=== PATIENT | female | born 1955 | race African-American/Black ===

== ENCOUNTER 2022-09-29 04:04 | Inpatient (IN) | payer OTHER, BC ==
[2022-09-22 09:01] VITALS: BMI 41.5
[~2022-09-29 04:04] MED LIST: BUPIVACAINE HCL/PF 0.5% (5MG/ML) 10 ML VIAL IJ ONE; LIDOCAINE 1%/EPI 1:100000 (20 ML MULTI DOSE VIAL) IJ ONE
[2022-09-29] MEDS ORDERED: PROPOFOL 20 ML ONE ×2 (15:33→16:48)
[2022-09-29] MEDS ORDERED: SUCCINYLCHOLINE CHLORIDE 200 MG/10 ML SYRINGE ONE (15:33)
[2022-09-29] MEDS ORDERED: MIDAZOLAM HCL 2 MG/2 ML SINGLE DOSE VIAL ONE (15:33)
[2022-09-29] MEDS ORDERED: VANCOMYCIN 1,000 MG VIAL (RESTRICTED TO ID ONLY) ONE (15:39)
[2022-09-29] MEDS ORDERED: GENTAMICIN SO4 80 MG/2 ML VIAL ONE (15:39)
[2022-09-29] MEDS ORDERED: GENTAMICIN 80MG PREMIX BAG IVPB ONE ×3 (16:09→16:54)
[2022-09-29] MEDS ORDERED: BETAMET ACET/BETAMET NA PH 30 MG/5 ML VIAL IM ONE ×2 (16:10)
[2022-09-29] MEDS ORDERED: LIDOCAINE 1%/EPI 1:100000 (20 ML MULTI DOSE VIAL) IJ ONE (16:55)
[2022-09-29] MEDS ORDERED: BUPIVACAINE HCL/PF 0.5% (5MG/ML) 10 ML VIAL IJ ONE (16:55)
[2022-09-29] MEDS ORDERED: ONDANSETRON 4 MG/2 ML VIAL IVPUSH PRN (19:29)
[2022-09-29] MEDS: LACTATED RINGERS SOLUTION 1,000 ML IV SCH ×2 (20:21→22:32)
[2022-09-29] MEDS: ATORVASTATIN CA 10 MG TABLET (FP) PO SCH (22:29)
[2022-09-29] MEDS: oxyCODONE HCL 5 MG TABLET PO PRN (22:29)
[2022-09-29] MEDS: POTASSIUM CHLORIDE TABS 10 MEQ TABLET.ER (FP) PO SCH (22:32)
[2022-09-29] MEDS: CELECOXIB 200 MG CAPSULE PO SCH (23:08)
[2022-09-30] MEDS: metFORMIN HCL 500 MG TABLET (FP) PO SCH ×2 (06:06→16:55)
[2022-09-30] MEDS ORDERED: amLODIPine BESYLATE 5 MG TABLET (FP) PO SCH (10:00)
[2022-09-30] MEDS: GABAPENTIN 300 MG CAPSULE PO SCH (10:11)
[2022-09-30] MEDS: FUROSEMIDE 20 MG TABLET (FP) PO SCH (10:11)
[2022-09-30] MEDS: LISINOPRIL 20 MG TABLET PO SCH (10:11)
[2022-09-30] MEDS: POTASSIUM CHLORIDE TABS 10 MEQ TABLET.ER (FP) PO SCH ×2 (10:11→21:54)
[2022-09-30] MEDS: CELECOXIB 200 MG CAPSULE PO SCH ×2 (10:12→21:54)
[2022-09-30] MEDS: HYDROCHLOROTHIAZIDE 25 MG TABLET (FP) PO SCH (10:12)
[2022-09-30] MEDS: oxyCODONE HCL 5 MG TABLET PO PRN ×2 (10:18→21:57)
[2022-09-30] MEDS: ATORVASTATIN CA 10 MG TABLET (FP) PO SCH (21:54)
[2022-09-30] MEDS: LACTATED RINGERS SOLUTION 1,000 ML IV SCH ×2 (21:55)
[2022-10-01] MEDS: metFORMIN HCL 500 MG TABLET (FP) PO SCH ×2 (07:10→17:13)
[2022-10-01] MEDS: LACTATED RINGERS SOLUTION 1,000 ML IV SCH ×3 (07:15→21:41)
[2022-10-01] MEDS: CELECOXIB 200 MG CAPSULE PO SCH ×2 (10:39→21:40)
[2022-10-01] MEDS: HYDROCHLOROTHIAZIDE 25 MG TABLET (FP) PO SCH (10:39)
[2022-10-01] MEDS: POTASSIUM CHLORIDE TABS 10 MEQ TABLET.ER (FP) PO SCH ×2 (10:40→21:40)
[2022-10-01] MEDS: GABAPENTIN 300 MG CAPSULE PO SCH (10:40)
[2022-10-01] MEDS: FUROSEMIDE 20 MG TABLET (FP) PO SCH (10:40)
[2022-10-01] MEDS: LISINOPRIL 20 MG TABLET PO SCH (10:41)
[2022-10-01] MEDS: amLODIPine BESYLATE 2.5 MG TABLET (FP) PO SCH (10:41)
[2022-10-01] MEDS: oxyCODONE HCL 5 MG TABLET PO PRN ×2 (10:50→21:40)
[2022-10-01] MEDS: ATORVASTATIN CA 10 MG TABLET (FP) PO SCH (21:40)
[2022-10-02] MEDS: metFORMIN HCL 500 MG TABLET (FP) PO SCH ×2 (07:02→16:59)
[2022-10-02] MEDS: oxyCODONE HCL 5 MG TABLET PO PRN ×3 (07:02→22:28)
[2022-10-02] MEDS: CELECOXIB 200 MG CAPSULE PO SCH ×2 (09:58→22:27)
[2022-10-02] MEDS: FUROSEMIDE 20 MG TABLET (FP) PO SCH (09:58)
[2022-10-02] MEDS: amLODIPine BESYLATE 2.5 MG TABLET (FP) PO SCH (09:58)
[2022-10-02] MEDS: HYDROCHLOROTHIAZIDE 25 MG TABLET (FP) PO SCH (09:58)
[2022-10-02] MEDS: GABAPENTIN 300 MG CAPSULE PO SCH (09:58)
[2022-10-02] MEDS: POTASSIUM CHLORIDE TABS 10 MEQ TABLET.ER (FP) PO SCH ×2 (09:58→22:27)
[2022-10-02] MEDS: LISINOPRIL 20 MG TABLET PO SCH (09:58)
[2022-10-02] MEDS: BACITRACIN ZINC 15 GM TUBE TOPICAL OINTMENT TP SCH (15:46)
[2022-10-02] MEDS ORDERED: ENOXAPARIN NA (PORCINE) 40 MG/0.4 ML DISP.SYRIN SQ SCH (17:15)
[2022-10-02] MEDS: HEPARIN NA (PORCINE) 5,000 UNITS/ML 1ML VIAL SQ SCH ×2 (18:11→22:28)
[2022-10-02] MEDS: ATORVASTATIN CA 10 MG TABLET (FP) PO SCH (22:27)
[2022-10-02] MEDS: INSULIN SLIDING SCALE (NOVOLOG) 1 VIAL SQ SCH (22:38)
[2022-10-03] MEDS: oxyCODONE HCL 5 MG TABLET PO PRN ×2 (06:59→22:29)
[2022-10-03] MEDS: metFORMIN HCL 500 MG TABLET (FP) PO SCH ×2 (07:00→17:16)
[2022-10-03] MEDS: INSULIN SLIDING SCALE (NOVOLOG) 1 VIAL SQ SCH ×4 (07:03→22:35)
[2022-10-03] MEDS: HEPARIN NA (PORCINE) 5,000 UNITS/ML 1ML VIAL SQ SCH ×2 (09:11→22:28)
[2022-10-03] MEDS: amLODIPine BESYLATE 2.5 MG TABLET (FP) PO SCH (09:11)
[2022-10-03] MEDS: FUROSEMIDE 20 MG TABLET (FP) PO SCH (09:11)
[2022-10-03] MEDS: CELECOXIB 200 MG CAPSULE PO SCH ×2 (09:11→22:28)
[2022-10-03] MEDS: HYDROCHLOROTHIAZIDE 25 MG TABLET (FP) PO SCH (09:11)
[2022-10-03] MEDS: POTASSIUM CHLORIDE TABS 10 MEQ TABLET.ER (FP) PO SCH ×2 (09:12→22:28)
[2022-10-03] MEDS: GABAPENTIN 300 MG CAPSULE PO SCH (09:12)
[2022-10-03] MEDS: LISINOPRIL 20 MG TABLET PO SCH (09:12)
[2022-10-03] MEDS: BACITRACIN ZINC 15 GM TUBE TOPICAL OINTMENT TP SCH (09:12)
[2022-10-03 09:47] LABS: BASO % 0.4 % (0-2.0); EOS % 3.2 % (0-4.5); HEMATOCRIT 33.6 % (32.4-45.2); HEMOGLOBIN 11.5 GM/dL (10.7-15.3); LYMPH % 15.2 % (8-40); MCH 31.2 pg (25.7-33.7); MCHC 34.3 g/dl (32.0-36.0); MEAN CELL VOLUME 90.8 fl (80-96); MEAN PLT VOLUME 6.9 fl (7.5-11.1); MONO % 12.7 % (3.8-10.2); NEUT % 68.5 % (42.8-82.8); PLATELET COUNT 307 10^3/uL (134-434); RDW 14.5 % (11.6-15.6); WHITE BLOOD COUNT 7.2 K/mm3 (4.0-10.0)
[2022-10-03 10:09] LABS: POTASSIUM 3.6 mmol/L (3.5-5.1)
[2022-10-03 10:15] LABS: CALCIUM 8.7 mg/dL (8.5-10.1)
[2022-10-03 10:16] LABS: ALBUMIN 2.5 g/dl (3.4-5.0); BLOOD UREA NITROGEN 12.7 mg/dL (7-18)
[2022-10-03 10:20] LABS: TOT PROT 6.3 g/dl (6.4-8.2)
[2022-10-03 10:21] LABS: BILIRUBIN,TOTAL 0.6 mg/dL (0.2-1)
[2022-10-03] MEDS ORDERED: INSULIN (NOVOLOG) ASPART 100 UNITS/ML 10ML VIAL ONE ×3 (11:26→21:18)
[2022-10-03] MEDS: ATORVASTATIN CA 10 MG TABLET (FP) PO SCH (22:28)
[2022-10-04] MEDS ORDERED: INSULIN (LEVEMIR) 100 UNITS/ML UNITS SQ ONE (07:06)
[2022-10-04] MEDS: INSULIN SLIDING SCALE (NOVOLOG) 1 VIAL SQ SCH ×4 (07:12→21:53)
[2022-10-04] MEDS: metFORMIN HCL 500 MG TABLET (FP) PO SCH ×2 (07:14→16:44)
[2022-10-04] MEDS: BACITRACIN ZINC 15 GM TUBE TOPICAL OINTMENT TP SCH (09:02)
[2022-10-04] MEDS: CELECOXIB 200 MG CAPSULE PO SCH ×2 (09:02→21:53)
[2022-10-04] MEDS: LISINOPRIL 20 MG TABLET PO SCH (09:03)
[2022-10-04] MEDS: HYDROCHLOROTHIAZIDE 25 MG TABLET (FP) PO SCH (09:03)
[2022-10-04] MEDS: POTASSIUM CHLORIDE TABS 10 MEQ TABLET.ER (FP) PO SCH ×2 (09:03→21:53)
[2022-10-04] MEDS: FUROSEMIDE 20 MG TABLET (FP) PO SCH (09:03)
[2022-10-04] MEDS: HEPARIN NA (PORCINE) 5,000 UNITS/ML 1ML VIAL SQ SCH ×2 (09:03→21:52)
[2022-10-04] MEDS: GABAPENTIN 300 MG CAPSULE PO SCH (09:03)
[2022-10-04] MEDS: amLODIPine BESYLATE 2.5 MG TABLET (FP) PO SCH (09:04)
[2022-10-04] MEDS ORDERED: INSULIN (NOVOLOG) ASPART 100 UNITS/ML 10ML VIAL ONE (11:21)
[2022-10-04] MEDS: ATORVASTATIN CA 10 MG TABLET (FP) PO SCH (21:52)
[2022-10-04] MEDS: oxyCODONE HCL 5 MG TABLET PO PRN (21:59)
[2022-10-05] MEDS: metFORMIN HCL 500 MG TABLET (FP) PO SCH ×2 (06:15→17:43)
[2022-10-05] MEDS: oxyCODONE HCL 5 MG TABLET PO PRN ×2 (06:20→22:45)
[2022-10-05] MEDS: INSULIN SLIDING SCALE (NOVOLOG) 1 VIAL SQ SCH ×4 (06:22→22:55)
[2022-10-05 09:02] LABS: BASO % 0.6 % (0-2.0); EOS % 3.1 % (0-4.5); HEMATOCRIT 36.1 % (32.4-45.2); LYMPH % 24.6 % (8-40); MCH 31.1 pg (25.7-33.7); MCHC 33.3 g/dl (32.0-36.0); MEAN CELL VOLUME 93.5 fl (80-96); MEAN PLT VOLUME 7.4 fl (7.5-11.1); MONO % 12.4 % (3.8-10.2); NEUT % 59.3 % (42.8-82.8); PLATELET COUNT 364 10^3/uL (134-434); RBC 3.86 M/mm3 (3.60-5.2); RDW 14.5 % (11.6-15.6); WHITE BLOOD COUNT 6.2 K/mm3 (4.0-10.0)
[2022-10-05 09:14] LABS: INR 1.03 (0.83-1.09); PROTHROMBIN TIME (PATIENT) 11.9 SEC (9.7-13.0)
[2022-10-05 09:15] LABS: ACTIVATED PTT 29.5 SECONDS (25.2-36.5)
[2022-10-05 09:21] LABS: CALCIUM 9.2 mg/dL (8.5-10.1)
[2022-10-05 09:22] LABS: ALBUMIN 2.8 g/dl (3.4-5.0); BLOOD UREA NITROGEN 18.8 mg/dL (7-18)
[2022-10-05 09:25] LABS: CREATININE 1.1 mg/dL (0.55-1.3); PHOSPHOROUS 3.1 mg/dL (2.5-4.9)
[2022-10-05 09:26] LABS: TOT PROT 6.8 g/dl (6.4-8.2)
[2022-10-05 09:27] LABS: BILIRUBIN,TOTAL 0.5 mg/dL (0.2-1)
[2022-10-05] MEDS: BACITRACIN ZINC 15 GM TUBE TOPICAL OINTMENT TP SCH ×4 (10:36→22:48)
[2022-10-05] MEDS: POTASSIUM CHLORIDE TABS 10 MEQ TABLET.ER (FP) PO SCH ×2 (10:37→22:46)
[2022-10-05] MEDS: amLODIPine BESYLATE 2.5 MG TABLET (FP) PO SCH (10:37)
[2022-10-05] MEDS: GABAPENTIN 300 MG CAPSULE PO SCH (10:37)
[2022-10-05] MEDS: FUROSEMIDE 20 MG TABLET (FP) PO SCH (10:37)
[2022-10-05] MEDS: HEPARIN NA (PORCINE) 5,000 UNITS/ML 1ML VIAL SQ SCH ×2 (10:37→22:46)
[2022-10-05] MEDS: LISINOPRIL 20 MG TABLET PO SCH (10:38)
[2022-10-05] MEDS: CELECOXIB 200 MG CAPSULE PO SCH ×2 (10:38→22:48)
[2022-10-05] MEDS: HYDROCHLOROTHIAZIDE 25 MG TABLET (FP) PO SCH (10:38)
[2022-10-05] MEDS: ATORVASTATIN CA 10 MG TABLET (FP) PO SCH (22:46)
[2022-10-06] MEDS: metFORMIN HCL 500 MG TABLET (FP) PO SCH ×2 (06:32→16:49)
[2022-10-06] MEDS: oxyCODONE HCL 5 MG TABLET PO PRN ×3 (06:35→22:44)
[2022-10-06] MEDS: INSULIN SLIDING SCALE (NOVOLOG) 1 VIAL SQ SCH ×4 (07:00→22:42)
[2022-10-06] MEDS: FUROSEMIDE 20 MG TABLET (FP) PO SCH (10:53)
[2022-10-06] MEDS: POTASSIUM CHLORIDE TABS 10 MEQ TABLET.ER (FP) PO SCH ×2 (10:53→22:33)
[2022-10-06] MEDS: CELECOXIB 200 MG CAPSULE PO SCH ×2 (10:53→22:39)
[2022-10-06] MEDS: HYDROCHLOROTHIAZIDE 25 MG TABLET (FP) PO SCH (10:53)
[2022-10-06] MEDS: GABAPENTIN 300 MG CAPSULE PO SCH (10:54)
[2022-10-06] MEDS: amLODIPine BESYLATE 2.5 MG TABLET (FP) PO SCH (10:54)
[2022-10-06] MEDS: LISINOPRIL 20 MG TABLET PO SCH (10:54)
[2022-10-06] MEDS: HEPARIN NA (PORCINE) 5,000 UNITS/ML 1ML VIAL SQ SCH ×2 (10:55→22:33)
[2022-10-06] MEDS: BACITRACIN ZINC 15 GM TUBE TOPICAL OINTMENT TP SCH ×3 (10:55→22:33)
[2022-10-06] MEDS: AMINO ACIDS/PROTEIN HYDROLYS 30 ML LIQUID.PKT PO SCH (17:05)
[2022-10-06] MEDS: ATORVASTATIN CA 10 MG TABLET (FP) PO SCH (22:33)
[2022-10-06] MEDS: SENNOSIDES 8.8 MG/5 ML SYRUP PO SCH (22:33)
[2022-10-07] MEDS: oxyCODONE HCL 5 MG TABLET PO PRN ×3 (06:19→22:22)
[2022-10-07] MEDS: INSULIN SLIDING SCALE (NOVOLOG) 1 VIAL SQ SCH ×4 (06:19→22:33)
[2022-10-07] MEDS: metFORMIN HCL 500 MG TABLET (FP) PO SCH ×2 (06:19→16:55)
[2022-10-07] MEDS: LISINOPRIL 20 MG TABLET PO SCH (10:21)
[2022-10-07] MEDS: MULTIVITAMINS (DAILY MVI) TABLET (FP) PO SCH (10:21)
[2022-10-07] MEDS: POTASSIUM CHLORIDE TABS 10 MEQ TABLET.ER (FP) PO SCH ×2 (10:21→22:24)
[2022-10-07] MEDS: HYDROCHLOROTHIAZIDE 25 MG TABLET (FP) PO SCH (10:21)
[2022-10-07] MEDS: FUROSEMIDE 20 MG TABLET (FP) PO SCH (10:21)
[2022-10-07] MEDS: AMINO ACIDS/PROTEIN HYDROLYS 30 ML LIQUID.PKT PO SCH ×2 (10:21→16:55)
[2022-10-07] MEDS: HEPARIN NA (PORCINE) 5,000 UNITS/ML 1ML VIAL SQ SCH (10:21)
[2022-10-07] MEDS: amLODIPine BESYLATE 2.5 MG TABLET (FP) PO SCH (10:21)
[2022-10-07] MEDS: GABAPENTIN 300 MG CAPSULE PO SCH (10:21)
[2022-10-07] MEDS: BACITRACIN ZINC 15 GM TUBE TOPICAL OINTMENT TP SCH ×3 (10:22→22:22)
[2022-10-07] MEDS: CELECOXIB 200 MG CAPSULE PO SCH ×2 (10:23→22:26)
[2022-10-07] MEDS ORDERED: NALOXONE HCL 0.4 MG/ML VIAL IVPUSH PRN (11:07)
[2022-10-07] MEDS ORDERED: INSULIN (NOVOLOG) ASPART 100 UNITS/ML 10ML VIAL ONE (21:43)
[2022-10-07] MEDS: SENNOSIDES 8.8 MG/5 ML SYRUP PO SCH (22:23)
[2022-10-07] MEDS: ATORVASTATIN CA 10 MG TABLET (FP) PO SCH (22:25)
[2022-10-08] MEDS: metFORMIN HCL 500 MG TABLET (FP) PO SCH ×2 (06:30→17:05)
[2022-10-08] MEDS: INSULIN SLIDING SCALE (NOVOLOG) 1 VIAL SQ SCH ×4 (06:31→22:06)
[2022-10-08] MEDS: oxyCODONE HCL 5 MG TABLET PO PRN ×2 (06:31→22:01)
[2022-10-08] MEDS: AMINO ACIDS/PROTEIN HYDROLYS 30 ML LIQUID.PKT PO SCH ×2 (08:19→17:05)
[2022-10-08] MEDS: CELECOXIB 200 MG CAPSULE PO SCH ×2 (10:33→22:02)
[2022-10-08] MEDS: POTASSIUM CHLORIDE TABS 10 MEQ TABLET.ER (FP) PO SCH ×2 (10:34→22:02)
[2022-10-08] MEDS: HYDROCHLOROTHIAZIDE 25 MG TABLET (FP) PO SCH (10:34)
[2022-10-08] MEDS: FUROSEMIDE 20 MG TABLET (FP) PO SCH (10:34)
[2022-10-08] MEDS: amLODIPine BESYLATE 2.5 MG TABLET (FP) PO SCH (10:35)
[2022-10-08] MEDS: LISINOPRIL 20 MG TABLET PO SCH (10:35)
[2022-10-08] MEDS: GABAPENTIN 300 MG CAPSULE PO SCH (10:35)
[2022-10-08] MEDS: ENOXAPARIN NA (PORCINE) 40 MG/0.4 ML DISP.SYRIN SQ SCH (10:36)
[2022-10-08] MEDS: BACITRACIN ZINC 15 GM TUBE TOPICAL OINTMENT TP SCH ×3 (10:36→22:02)
[2022-10-08] MEDS: MULTIVITAMINS (DAILY MVI) TABLET (FP) PO SCH (10:36)
[2022-10-08] MEDS: SENNOSIDES 8.8 MG/5 ML SYRUP PO SCH (22:01)
[2022-10-08] MEDS: ATORVASTATIN CA 10 MG TABLET (FP) PO SCH (22:02)
[2022-10-09] MEDS: oxyCODONE HCL 5 MG TABLET PO PRN ×3 (05:54→22:08)
[2022-10-09] MEDS: metFORMIN HCL 500 MG TABLET (FP) PO SCH ×2 (05:59→16:45)
[2022-10-09] MEDS: INSULIN SLIDING SCALE (NOVOLOG) 1 VIAL SQ SCH ×4 (08:45→22:14)
[2022-10-09] MEDS ORDERED: methylPREDNISolone NA SUCC 1000 MG/8 ML VIAL IVPB SCH (09:15)
[2022-10-09] MEDS: BACITRACIN ZINC 15 GM TUBE TOPICAL OINTMENT TP SCH ×3 (09:51→22:09)
[2022-10-09] MEDS: AMINO ACIDS/PROTEIN HYDROLYS 30 ML LIQUID.PKT PO SCH ×2 (09:55→16:45)
[2022-10-09] MEDS: ENOXAPARIN NA (PORCINE) 40 MG/0.4 ML DISP.SYRIN SQ SCH (09:55)
[2022-10-09] MEDS: MULTIVITAMINS (DAILY MVI) TABLET (FP) PO SCH (09:56)
[2022-10-09] MEDS: LISINOPRIL 20 MG TABLET PO SCH (09:56)
[2022-10-09] MEDS: POTASSIUM CHLORIDE TABS 10 MEQ TABLET.ER (FP) PO SCH ×2 (09:56→22:08)
[2022-10-09] MEDS: FUROSEMIDE 20 MG TABLET (FP) PO SCH (09:56)
[2022-10-09] MEDS: HYDROCHLOROTHIAZIDE 25 MG TABLET (FP) PO SCH (09:56)
[2022-10-09] MEDS: amLODIPine BESYLATE 2.5 MG TABLET (FP) PO SCH (09:56)
[2022-10-09] MEDS: GABAPENTIN 300 MG CAPSULE PO SCH (09:56)
[2022-10-09] MEDS ORDERED: METHYLPREDNISOLONE NA SUCC 1,000 MG in SODIUM CHLORIDE 250 ML IVPB SCH (10:00)
[2022-10-09] MEDS ORDERED: METHYLPREDNISOLONE NA SUCC 1,000 MG in SODIUM CHLORIDE 250 ML IVPB ONE (11:15)
[2022-10-09] MEDS: ATORVASTATIN CA 10 MG TABLET (FP) PO SCH (22:08)
[2022-10-09] MEDS: SENNOSIDES 8.8 MG/5 ML SYRUP PO SCH (22:08)
[2022-10-09] MEDS ORDERED: INSULIN (NOVOLOG) ASPART 100 UNITS/ML 10ML VIAL ONE (22:13)
[2022-10-10] MEDS: oxyCODONE HCL 5 MG TABLET PO PRN ×3 (06:12→22:49)
[2022-10-10] MEDS: metFORMIN HCL 500 MG TABLET (FP) PO SCH ×2 (06:12→16:53)
[2022-10-10] MEDS: INSULIN SLIDING SCALE (NOVOLOG) 1 VIAL SQ SCH ×4 (06:17→22:55)
[2022-10-10 07:48] LABS: POTASSIUM 4.7 mmol/L (3.5-5.1)
[2022-10-10 07:51] LABS: CALCIUM 9.6 mg/dL (8.5-10.1)
[2022-10-10 07:55] LABS: CREATININE 1.4 mg/dL (0.55-1.3)
[2022-10-10 08:01] LABS: BLOOD UREA NITROGEN 45.6 mg/dL (7-18)
[2022-10-10] MEDS: AMINO ACIDS/PROTEIN HYDROLYS 30 ML LIQUID.PKT PO SCH ×2 (09:33→16:53)
[2022-10-10] MEDS: GABAPENTIN 300 MG CAPSULE PO SCH (09:34)
[2022-10-10] MEDS: HYDROCHLOROTHIAZIDE 25 MG TABLET (FP) PO SCH (09:34)
[2022-10-10] MEDS: FUROSEMIDE 20 MG TABLET (FP) PO SCH (09:34)
[2022-10-10] MEDS: POTASSIUM CHLORIDE TABS 10 MEQ TABLET.ER (FP) PO SCH ×2 (09:34→22:44)
[2022-10-10] MEDS: LISINOPRIL 20 MG TABLET PO SCH (09:35)
[2022-10-10] MEDS: MULTIVITAMINS (DAILY MVI) TABLET (FP) PO SCH (09:35)
[2022-10-10] MEDS: amLODIPine BESYLATE 2.5 MG TABLET (FP) PO SCH (09:35)
[2022-10-10] MEDS: ASCORBIC ACID 250 MG TABLET (FP) PO SCH (09:35)
[2022-10-10] MEDS: METHYLPREDNISOLONE NA SUCC 1,000 MG in SODIUM CHLORIDE 250 ML IVPB SCH (09:36)
[2022-10-10] MEDS: ENOXAPARIN NA (PORCINE) 40 MG/0.4 ML DISP.SYRIN SQ SCH (09:37)
[2022-10-10] MEDS ORDERED: INSULIN (NOVOLOG) ASPART 100 UNITS/ML 10ML VIAL ONE ×2 (11:26→17:19)
[2022-10-10] MEDS: BACITRACIN ZINC 15 GM TUBE TOPICAL OINTMENT TP SCH ×3 (13:10→22:46)
[2022-10-10] MEDS: LACTATED RINGERS SOLUTION 1,000 ML/1,000 ML INFUS.BAG IV SCH ×2 (13:34→23:34)
[2022-10-10] MEDS: ATORVASTATIN CA 10 MG TABLET (FP) PO SCH (22:44)
[2022-10-10] MEDS: SENNOSIDES 8.8 MG/5 ML SYRUP PO SCH (22:45)
[2022-10-11] MEDS: INSULIN SLIDING SCALE (NOVOLOG) 1 VIAL SQ SCH ×4 (07:05→22:49)
[2022-10-11] MEDS: metFORMIN HCL 500 MG TABLET (FP) PO SCH ×2 (07:05→16:37)
[2022-10-11] MEDS: oxyCODONE HCL 5 MG TABLET PO PRN ×3 (07:09→22:41)
[2022-10-11] MEDS: AMINO ACIDS/PROTEIN HYDROLYS 30 ML LIQUID.PKT PO SCH ×2 (08:13→17:33)
[2022-10-11 08:29] LABS: BASO % 0.1 % (0-2.0); HEMOGLOBIN 11.7 GM/dL (10.7-15.3); LYMPH % 10.4 % (8-40); MCH 30.3 pg (25.7-33.7); MCHC 32.5 g/dl (32.0-36.0); MEAN PLT VOLUME 7.6 fl (7.5-11.1); NEUT % 83.5 % (42.8-82.8); PLATELET COUNT 581 10^3/uL (134-434); RBC 3.87 M/mm3 (3.60-5.2); RDW 14.3 % (11.6-15.6); WHITE BLOOD COUNT 16.7 K/mm3 (4.0-10.0)
[2022-10-11 08:44] LABS: POTASSIUM 4.5 mmol/L (3.5-5.1)
[2022-10-11 08:46] LABS: CALCIUM 9.6 mg/dL (8.5-10.1)
[2022-10-11 08:47] LABS: BLOOD UREA NITROGEN 47.7 mg/dL (7-18)
[2022-10-11 08:50] LABS: CREATININE 1.3 mg/dL (0.55-1.3)
[2022-10-11] MEDS: POTASSIUM CHLORIDE TABS 10 MEQ TABLET.ER (FP) PO SCH ×2 (09:50→22:42)
[2022-10-11] MEDS: HYDROCHLOROTHIAZIDE 25 MG TABLET (FP) PO SCH (09:50)
[2022-10-11] MEDS: GABAPENTIN 300 MG CAPSULE PO SCH (09:51)
[2022-10-11] MEDS: MULTIVITAMINS (DAILY MVI) TABLET (FP) PO SCH (09:51)
[2022-10-11] MEDS: ASCORBIC ACID 250 MG TABLET (FP) PO SCH (09:51)
[2022-10-11] MEDS: amLODIPine BESYLATE 2.5 MG TABLET (FP) PO SCH (09:51)
[2022-10-11] MEDS: LACTATED RINGERS SOLUTION 1,000 ML/1,000 ML INFUS.BAG IV SCH ×2 (09:52→15:08)
[2022-10-11] MEDS: ENOXAPARIN NA (PORCINE) 40 MG/0.4 ML DISP.SYRIN SQ SCH (09:52)
[2022-10-11] MEDS: BACITRACIN ZINC 15 GM TUBE TOPICAL OINTMENT TP SCH ×3 (10:42→22:46)
[2022-10-11] MEDS: METHYLPREDNISOLONE NA SUCC 1,000 MG in SODIUM CHLORIDE 250 ML IVPB SCH (10:42)
[2022-10-11] MEDS: SODIUM CHLORIDE 0.45% 1,000 ML IV SCH (15:27)
[2022-10-11] MEDS: SENNOSIDES 8.8 MG/5 ML SYRUP PO SCH (22:41)
[2022-10-11] MEDS: ATORVASTATIN CA 10 MG TABLET (FP) PO SCH (22:42)
[2022-10-12] MEDS: metFORMIN HCL 500 MG TABLET (FP) PO SCH ×2 (06:26→16:34)
[2022-10-12] MEDS: oxyCODONE HCL 5 MG TABLET PO PRN ×2 (06:26→16:35)
[2022-10-12] MEDS: SODIUM CHLORIDE 0.45% 1,000 ML IV SCH ×2 (06:27→16:37)
[2022-10-12] MEDS: INSULIN SLIDING SCALE (NOVOLOG) 1 VIAL SQ SCH ×4 (06:33→21:34)
[2022-10-12 08:15] LABS: HEMATOCRIT 33.7 % (32.4-45.2); HEMOGLOBIN 11.5 GM/dL (10.7-15.3); MCH 30.8 pg (25.7-33.7); MCHC 34.1 g/dl (32.0-36.0); MEAN CELL VOLUME 90.5 fl (80-96); MEAN PLT VOLUME 7.1 fl (7.5-11.1); PLATELET COUNT 564 10^3/uL (134-434); RBC 3.73 M/mm3 (3.60-5.2); RDW 14.2 % (11.6-15.6); WHITE BLOOD COUNT 13.5 K/mm3 (4.0-10.0)
[2022-10-12 08:21] LABS: ACTIVATED PTT 24.8 SECONDS (25.2-36.5)
[2022-10-12 08:25] LABS: INR 1.05 (0.83-1.09); PROTHROMBIN TIME (PATIENT) 12.2 SEC (9.7-13.0)
[2022-10-12 08:31] LABS: POTASSIUM 3.8 mmol/L (3.5-5.1)
[2022-10-12 08:39] LABS: ALBUMIN 2.7 g/dl (3.4-5.0); BLOOD UREA NITROGEN 40.6 mg/dL (7-18); CALCIUM 9.2 mg/dL (8.5-10.1)
[2022-10-12 08:40] LABS: MAGNESIUM 2.2 mg/dL (1.8-2.4)
[2022-10-12 08:42] LABS: CREATININE 1.2 mg/dL (0.55-1.3); PHOSPHOROUS 2.9 mg/dL (2.5-4.9)
[2022-10-12 08:43] LABS: BILIRUBIN,TOTAL 0.3 mg/dL (0.2-1); TOT PROT 6.5 g/dl (6.4-8.2)
[2022-10-12 09:28] LABS: ANISOCYTOSIS 1+; MACROCYTOSIS 0
[2022-10-12] MEDS: AMINO ACIDS/PROTEIN HYDROLYS 30 ML LIQUID.PKT PO SCH ×2 (10:23→16:33)
[2022-10-12] MEDS: HYDROCHLOROTHIAZIDE 25 MG TABLET (FP) PO SCH (10:24)
[2022-10-12] MEDS: POTASSIUM CHLORIDE TABS 10 MEQ TABLET.ER (FP) PO SCH ×2 (10:24→21:26)
[2022-10-12] MEDS: BACITRACIN ZINC 15 GM TUBE TOPICAL OINTMENT TP SCH ×3 (10:24→21:34)
[2022-10-12] MEDS: MULTIVITAMINS (DAILY MVI) TABLET (FP) PO SCH (10:25)
[2022-10-12] MEDS: ENOXAPARIN NA (PORCINE) 40 MG/0.4 ML DISP.SYRIN SQ SCH (10:25)
[2022-10-12] MEDS: ASCORBIC ACID 250 MG TABLET (FP) PO SCH (10:25)
[2022-10-12] MEDS: GABAPENTIN 300 MG CAPSULE PO SCH (10:25)
[2022-10-12] MEDS: amLODIPine BESYLATE 2.5 MG TABLET (FP) PO SCH (10:25)
[2022-10-12] MEDS ORDERED: INSULIN (NOVOLOG) ASPART 100 UNITS/ML 10ML VIAL ONE ×4 (11:08→16:31)
[2022-10-12] MEDS ORDERED: ACETAMINOPHEN WITH CODEINE 300MG/30MG TABLET PO PRN (12:27)
[2022-10-12] MEDS: CELECOXIB 100 MG CAPSULE PO SCH ×2 (12:47→21:25)
[2022-10-12] MEDS: SENNOSIDES 8.8 MG/5 ML SYRUP PO SCH ×2 (21:26→21:34)
[2022-10-12] MEDS: ATORVASTATIN CA 10 MG TABLET (FP) PO SCH (21:26)
[2022-10-12] MEDS: METHYLPREDNISOLONE NA SUCC 1,000 MG in SODIUM CHLORIDE 250 ML IVPB SCH (22:23)
[2022-10-13] MEDS: oxyCODONE HCL 5 MG TABLET PO PRN ×3 (00:57→19:45)
[2022-10-13] MEDS ORDERED: INSULIN (NOVOLOG) ASPART 100 UNITS/ML 10ML VIAL ONE (05:50)
[2022-10-13] MEDS: metFORMIN HCL 500 MG TABLET (FP) PO SCH ×2 (06:11→17:14)
[2022-10-13] MEDS: INSULIN SLIDING SCALE (NOVOLOG) 1 VIAL SQ SCH ×3 (06:11→17:13)
[2022-10-13] MEDS: AMINO ACIDS/PROTEIN HYDROLYS 30 ML LIQUID.PKT PO SCH ×2 (08:43→17:14)
[2022-10-13] MEDS: ENOXAPARIN NA (PORCINE) 40 MG/0.4 ML DISP.SYRIN SQ SCH (10:56)
[2022-10-13] MEDS: MULTIVITAMINS (DAILY MVI) TABLET (FP) PO SCH (10:56)
[2022-10-13] MEDS: HYDROCHLOROTHIAZIDE 25 MG TABLET (FP) PO SCH (10:56)
[2022-10-13] MEDS: GABAPENTIN 300 MG CAPSULE PO SCH (10:56)
[2022-10-13] MEDS: FUROSEMIDE 20 MG TABLET (FP) PO SCH (10:56)
[2022-10-13] MEDS: BACITRACIN ZINC 15 GM TUBE TOPICAL OINTMENT TP SCH ×2 (10:56)
[2022-10-13] MEDS: METHYLPREDNISOLONE NA SUCC 1,000 MG in SODIUM CHLORIDE 250 ML IVPB SCH (10:57)
[2022-10-13] MEDS: amLODIPine BESYLATE 2.5 MG TABLET (FP) PO SCH (10:57)
[2022-10-13] MEDS: POTASSIUM CHLORIDE TABS 10 MEQ TABLET.ER (FP) PO SCH (10:57)
[2022-10-13] MEDS: LISINOPRIL 20 MG TABLET PO SCH (10:57)
[2022-10-13] MEDS: CELECOXIB 100 MG CAPSULE PO SCH (10:57)
[2022-10-13] MEDS: ASCORBIC ACID 250 MG TABLET (FP) PO SCH (10:58)
[2022-10-13 14:10] VITALS: BP 143/89; PULSE 66; RESP 20; TEMP 97.7
== END 2022-10-13 21:00 | DRG 577 ==
LOC: JASUSAT 04:04 → J7W 20:59 → JASUSAT 20:59 → J7W 10-02 → UNDOADMIN 10-02 → J7W 10-02 15:30 → JASUSAT 10-02 16:09
PROVIDERS: ADMIT Plastic Surgery; ATTEND Internal Medicine
PROC: 0JBN0ZZ Excision of Right Lower Leg Subcutaneous Tissue and Fascia, Open Approach (ICD-10-PCS; 2022-09-29)
PROC: 0YQ90ZZ Repair Right Lower Extremity, Open Approach (ICD-10-PCS; 2022-09-29)
PROC: 0HRKX74 Replacement of Right Lower Leg Skin with Autologous Tissue Substitute, Partial Thickness, External Approach (ICD-10-PCS; principal; 2022-09-29 14:00)
DX: L88 Pyoderma gangrenosum (principal); N17.9 Acute kidney failure, unspecified; Z68.41 Body mass index [BMI] 40.0-44.9, adult; I10 Essential (primary) hypertension; E11.9 Type 2 diabetes mellitus without complications; E78.5 Hyperlipidemia, unspecified; E66.9 Obesity, unspecified
CPT/HCPCS: 36415; 80048; 80053; 82962; 83036; 83735; 84100; 85025; 85610; 85730; 87070; 87205; 87635; 88304-TC; 94760; 97116-GP; J1644